=== PATIENT | female | born 1975 | race Caucasian/White ===

== ENCOUNTER 2020-01-02 12:00 | Outpatient (CLI) | payer OTHER, SELFPAY ==
--- NOTE | ~2020-01-02 | MMUS_ITS ---
EXAMINATION: MM diagnostic noelle BI w anish, US breast LT limited HISTORY: Six-month follow-up for probably benign right breast calcifications and left breast masses TECHNIQUE: Craniocaudal, mediolateral, and mediolateral oblique 3-D tomosynthesis images of the breas ts were performed and synthetic 2-D images were generated. CAD analysis was submitted and interpreted . High resolution limited left breast ultrasound was performed. COMPARISON: 05/27/2019, 05/16/2019 BREAST PARENCHYMAL COMPOSITION: The breasts are extremely dense, which lowers the sensitivity of mamm ography. FINDINGS: MAMMOGRAPHIC FINDINGS: Right breast: Previously described punctate regional right breast calcifications are stable in appear ance. There is a new group of calcifications in the anterior third of the upper outer breast at the 1 0:00 location 3 cm from the nipple. These appear to be coarse heterogeneous morphology but are too fe w in number for definitive characterization. No suspicious mass or architectural distortion are ident ified. Left breast: There is no evidence of suspicious mass, calcification, or architectural distortion to suggest malignancy. There has been no suspicious interval change. ULTRASOUND: There is a stable 12 mm x 3 mm oval, circumscribed, parallel, hypoechoic mass with posterior acoustic enhancement has no internal vascularity at the 9:00 location 3 cm from the nipple. On There is a stable 3 mm cyst at the 2:00 location 4 cm from the nipple. An 8 mm x 3 mm oval, circumscr ibed, parallel, hypoechoic mass with posterior acoustic enhancement and no internal vascularity is se en at the 3:00 location near the nipple. Masses previously described at the 2:00 and 12:00 locations are not definitely identified. IMPRESSION: 1. New group of indeterminate morphology right breast calcifications and otherwise stable right breas t calcifications as well as probably benign left breast masses. 2. Recommend 6 month follow-up bilateral diagnostic mammogram and left breast ultrasound BI-RADS category 3, probably benign findings. Reviewed, dictated and finalized at location A. IMPRESSION: 1. New group of indeterminate morphology right breast calcifications and otherw ise stable right breast calcifications as well as probably benign left breast m asses. 2. Recommend 6 month follow-up bilateral diagnostic mammogram and left breast u ltrasound BI-RADS category 3, probably benign findings.
== END 2020-01-02 12:01 | disposition home or self-care (01) ==
LOC: ANHIMG 12:12
DX: R92.8 Other abnormal and inconclusive findings on diagnostic imaging of breast (principal)
CPT/HCPCS: 76642; 77062; 77066; G0279

== ENCOUNTER 2021-05-02 12:08 | Outpatient (CLI) | payer OTHER, SELFPAY ==
--- NOTE | ~2021-05-02 | MMUS_ITS ---
EXAMINATION: MM diagnostic noelle BI w anish, US breast BI complete HISTORY: New grouped indeterminate right breast microcalcifications and probable benign left breast m asses reported on 01/02/2020 diagnostic bilateral mammogram and limited left breast ultrasound; six-mo nth follow-up is recommended TECHNIQUE: ML, MLO and craniocaudal 3-D tomosynthesis images of both breasts were performed and synth etic 2-D images were generated. Magnification views of right breast. CAD analysis was submitted and i nterpreted. High resolution complete bilateral breast ultrasound was performed. COMPARISON: 01/02/2020 bilateral diagnostic digital mammogram and limited left breast ultrasound BREAST PARENCHYMAL COMPOSITION: The breasts are extremely dense, which lowers the sensitivity of mamm ography. FINDINGS: MAMMOGRAPHIC FINDINGS: There are bilateral scattered punctate benign-appearing microcalcifications. No malignant calcificati on is evident. No suspicious mass or architectural distortion is evident. However, the very dense stroma may obscure masses. Bilateral complete breast ultrasound examination was performed. ULTRASOUND: Right breast: 4:00 near nipple: There is a 2.5 x 3.8 mm sonolucency with through transmission and posterior enhance ment consistent with simple cyst Left breast: 12:00 near nipple: 2.2 x 2.5 mm cyst 3:00 1 cm from nipple: 6.9 x 3.1 x 5.8 mm cyst 9:00 1 cm from nipple: Parallel circumscribed hypoechoic 1.4 x 2.9 x 9.3 mm mass with mild internal v ascularity, without suspicious shadowing. The sonographic appearance is consistent with benign proces s, likely benign fibroadenoma. 10:00 1 cm from nipple: 7.6 x 3.5 x 7.5 mm multi locular cystic IMPRESSION: 1. Probable benign left breast lesions 2. 6 month left breast ultrasound follow-up is recommended BI-RADS category 3, probably benign findings. Reviewed, dictated and finalized at location A. IMPRESSION: 1. Probable benign left breast lesions 2. 6 month left breast ultrasound follow-up is recommended BI-RADS category 3, probably benign findings.
== END 2021-05-02 12:09 | disposition home or self-care (01) ==
LOC: ANHIMG 12:11
PROVIDERS: PCP Physician Assistant; Visit Provider Physician Assistant
DX: N60.02 Solitary cyst of left breast (principal); N60.01 Solitary cyst of right breast; N63.25 Unspecified lump in the left breast, overlapping quadrants
CPT/HCPCS: 76641; 77062; 77066; G0279

== ENCOUNTER 2022-08-03 10:02 | Outpatient (CLI) | payer OTHER, SELFPAY ==
--- NOTE | ~2022-08-03 | MM_ITS ---
EXAMINATION: MM screening noelle BI w anish HISTORY: Screening mammogram. Patient is overdue for follow-up of probably benign left breast masses TECHNIQUE: Craniocaudal and mediolateral oblique 3-D tomosynthesis images were obtained and synthetic 2-D images were generated. CAD analysis was submitted and interpreted. COMPARISON: 05/02/2021, 01/02/2020, 05/27/2019, 05/16/2019 BREAST PARENCHYMAL COMPOSITION: The breasts are extremely dense, which lowers the sensitivity of mamm ography. FINDINGS: There are chronic punctate calcifications of the right breast without change, consistent wi th benign findings. No suspicious mass, calcification, or architectural distortion are identified in either breast to suggest malignancy. There has been no suspicious interval change. Prior ultrasound d emonstrated two years of interval stability of the previously described left breast masses. IMPRESSION: 1. No mammographic evidence of malignancy. 2. Recommend routine screening mammography in one year. BI-RADS Category 2: Benign finding(s). Reviewed, dictated and finalized at location A. 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
== END 2022-08-03 10:03 | disposition home or self-care (01) ==
LOC: ANHIMG 10:08
PROVIDERS: PCP Physician Assistant; Visit Provider Physician Assistant
DX: Z12.31 Encounter for screening mammogram for malignant neoplasm of breast (principal)
CPT/HCPCS: 77063; 77067

== ENCOUNTER 2024-03-06 14:57 | Outpatient (CLI) | payer OTHER, SELFPAY ==
--- NOTE | ~2024-03-06 | MM_ITS ---
EXAMINATION: MM screening noelle BI w anish HISTORY: Screening TECHNIQUE: Craniocaudal and mediolateral oblique 3-D tomosynthesis images were obtained and synthetic 2-D images were generated. CAD analysis was submitted and interpreted. COMPARISON: Comparison to multiple prior studies sequentially, with oldest reviewed study dated 07/2018. BREAST PARENCHYMAL COMPOSITION: Dense: The breasts are extremely dense, which lowers the sensitivity of mammography. FINDINGS: There are developing asymmetries medially in the right breast as well as superiorly in the left breast. There are benign bilateral breast calcifications. IMPRESSION: 1. Developing bilateral breast asymmetries. 2. Additional mammographic views and possible breast ultrasound are recommended. BI-RADS Category 0: Incomplete: Needs additional imaging evaluation. Reviewed, dictated and finalized at location B. IMPRESSION: 1. Developing bilateral breast asymmetries. 2. Additional mammographic views and possible breast ultrasound are recommended . BI-RADS Category 0: Incomplete: Needs additional imaging evaluation.
== END 2024-03-06 14:58 | disposition home or self-care (01) ==
LOC: ANHIMG 14:58
PROVIDERS: PCP Physician Assistant; Visit Provider Physician Assistant
DX: Z12.31 Encounter for screening mammogram for malignant neoplasm of breast (principal); R92.8 Other abnormal and inconclusive findings on diagnostic imaging of breast
CPT/HCPCS: 77063; 77067

== ENCOUNTER 2024-04-10 10:54 | Outpatient (CLI) | payer OTHER, SELFPAY ==
--- NOTE | ~2024-04-10 | MMUS_ITS ---
EXAMINATION: MM diagnostic noelle BI w anish, US breast BI complete HISTORY: Follow-up breast asymmetries. TECHNIQUE: Additional 3-D tomosynthesis images of the breasts were performed and synthetic 2-D images were generated. CAD analysis was submitted and interpreted. High resolution bilateral complete breas t ultrasound was performed. COMPARISON: Comparison to multiple prior studies sequentially, with oldest reviewed study dated 07/2018. BREAST PARENCHYMAL COMPOSITION: Dense: The breasts are extremely dense, which lowers the sensitivity of mammography. FINDINGS: MAMMOGRAPHIC FINDINGS: There are no discrete masses, suspicious clustered calcifications or architectural distortion to sugg est malignancy. ULTRASOUND: Complete US of all 4 quadrants of the breast/s and retroareolar region was reviewed. Right breast: There are multiple cysts. There are no suspicious masses to suggest malignancy. Left breast: At 12:00 near the nipple there is a slightly irregular 5 mm cyst, likely benign. At 3:00 , 4 cm from the nipple there is an oval hypoechoic parallel oriented mass without posterior features or internal vascularity measuring 4 mm. At 10:00, 4 cm from the nipple there is a parallel oriented o jeet hypoechoic mass with echogenic hilum measuring 12 mm, possibly an intramammary lymph node, likely benign. At 10:00, 2 cm from the nipple there is a cluster of cysts measuring 7 mm. IMPRESSION: 1. No evidence for malignancy in the right breast. Probable benign left breast masses by ultrasound. 2. Recommend 6 month follow-up Limited left breast ultrasound BI-RADS category 3, probably benign findings. Reviewed, dictated and finalized at location B. IMPRESSION: 1. No evidence for malignancy in the right breast. Probable benign left breast masses by ultrasound. 2. Recommend 6 month follow-up Limited left breast ultrasound BI-RADS category 3, probably benign findings.
== END 2024-04-10 10:55 | disposition home or self-care (01) ==
PROVIDERS: PCP Physician Assistant; Visit Provider Physician Assistant
DX: R92.8 Other abnormal and inconclusive findings on diagnostic imaging of breast (principal)
CPT/HCPCS: 76641; 77062; 77066; G0279

== ENCOUNTER 2025-02-25 09:52 | Outpatient (CLI) | payer OTHER, SELFPAY ==
--- NOTE | ~2025-02-25 | US_ITS ---
US breast LT limited 02/25/2025 10:35 Indication: Follow-up likely benign left breast masses Procedure: High-resolution Limited ultrasound of the left breast Comparison: Ultrasound dated 04/10/2024 Findings: There is a slightly irregular 4 mm cyst at 12:00 near the nipple without significant change . At 3:00, 4 cm from the nipple there is an oval parallel oriented hypoechoic mass with circumscribed margins measuring 4 mm without internal vascularity or posterior features, stable. At 10:00, 4 cm fr om the nipple there is a circumscribed parallel oriented hypoechoic mass with subtle posterior acoust ic enhancement and no internal vascularity measuring 1 cm maximum dimension, without significant del cid ge. At 10:00, 2 cm from the nipple there is a cluster of cysts measuring 8 mm in aggregate. No signif icant change. Impression: 1: Stable likely benign left breast masses. BI-RADS CATEGORY 3-PROBABLY BENIGN FINDING RECOMMENDATION: Six-month follow-up bilateral mammogram and Limited left breast ultrasound recommende d. Reviewed, dictated and finalized at location A. Impression: 1: Stable likely benign left breast masses. BI-RADS CATEGORY 3-PROBABLY BENIGN FINDING RECOMMENDATION: Six-month follow-up bilateral mammogram and Limited left breast ultrasound recommended.
--- OUTSIDE RECORDS SUMMARY | 2025-02-25 10:03 | XMS_ITS | Clinical Summary ---
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 Gender Identity Not on file Sexual Orientation Not on file Plan of Treatment Health Maintenance Due Date Last Done Comments Hepatitis C Virus (HCV) Screening 1977 TdaP Immunization 1977 Hepatitis B Immunization (1 of 3 - 19+ 3-dose series) 1996 Pap Smear 1998 Cervical Cancer Screening (CCS) 2007 HPV/Cotest 2007 Cologuard 2022 Colonoscopy 2022 Colorectal Cancer Screening 2022 Immunochemical Fecal Occult Blood 2022 SARS-COV-2 Immunization ( season) 2024 Influenza Immunization (#1) 2025 04/14/2020 Respiratory Syncytial Virus (RSV) Immunization (Adult) (1 - 1-dose 75+ series) 2052 Human Papillomavirus (HPV) Immunization Aged Out No longer eligible b ased on patient's age to complete this topic Meningococcal Immunization (ACWY) Aged Out No longer eligible based on patient's age to complete this topic Pneumococcal Immunization Combined Aged Out No longer eligible based on patient's age to complete this topic Rotavirus Immunization Aged Out No lo nger eligible based on patient's age to complete this topic
--- OUTSIDE RECORDS SUMMARY | 2025-02-25 10:03 | XMS_ITS | Clinical Summary ---
Author Organization [facility] [address] Address [address] [place] [address] Care Team Providers Care Paving Crew Foreman Name Role Phone Etta Otoole Primary Care Pr ovider Allergies Active Allergy Reactions Criticality Noted Date Comments Amoxicillin-Pot Clavulanate Hives Medium 06/27/20 21 Medications No known medications Active Problems Problem Noted Date Diagnosed Date History of COVID-19 06/27/2021 Abnormal EKG 06/27/2021 Dizziness 06/27/2021 Lipid screening 06/27/2021 Bradycardia 06/27/2021 Family History Medical History Relation Name Comments Heart disease Mother Hyperlipidemia Mother Relation Name Status Comments Mother Social History Tobacco Use Types Packs/Day Years Used Date Smoking Tobacco: Never Smokeless Tobacco: Never Personal Safety Answer Date Recorded Getting School Help Needed Not on file 09/29 Comments Unknown Sex and Gender Information Value Date Recorded Sex Assigned at Not on file Legal Sex Female 10:17 AM CDT Gender Identity Not on file Sexual Orientation Not on file Obstetrics History Last Filed Vital Signs Vital Sign Reading Time Taken Comments Blood Pressure 119/76 09/22/2021 10:[address] [employer] Pulse 50 09/22/2021 10:[address] [address] Temperature - - Respiratory Rate 15 07/22/2021 2:[address] [employer] Oxygen Saturation - - Inhaled Oxygen Concentration - - Weight 57.2 kg (126 lb) 07/22/2021 2:[address] [employer] Height 170.2 cm (5' 7) 07/22/2021 2:[address] [employer] Body Mass Index 19.73 07/22/2021 2:[address] [employer] Plan of Treatment Not on file Insurance , [address] [employer] , [id number] CHO[employer] PLUS Care Teams Paving Crew Foreman Relationship Specialty Start Date End Date Etta Otoole PA PCP - General Physician Laundry Aide 04/05/21
== END 2025-02-25 09:53 | disposition home or self-care (01) ==
LOC: ANHIMG 09:54
PROVIDERS: PCP Physician Assistant; Visit Provider Physician Assistant
DX: N63.22 Unspecified lump in the left breast, upper inner quadrant (principal)
CPT/HCPCS: 76642